=== PATIENT | female | born 1945 | race Caucasian/White ===

== ENCOUNTER 2021-05-28 11:56 | Outpatient (CLI) | payer MEDICARE, OTHER ==
--- NOTE | 2021-05-28 13:40 | XRAY Report ---
PROCEDURE: Ankle 3 View LT INDICATIONS: PAIN IN LEFT ANKLE TECHNIQUE: 3 views of the ankle were acquired. COMPARISON: None FINDINGS: Bones: Comminuted fracture is present within the distal fibula. Tibiotalar joint space is maintained. Ankle mortise is normally aligned. No suspicious bony lesions. Soft tissues: Lateral malleolar edema is present. Achilles tendon appears normal. IMPRESSION: Comminuted distal fibular fracture with adjacent soft tissue edema. Reviewed by: Dawn Dorsey MD on 05/28/2021 1:39 PM PDT Approved by: Dawn Dorsey MD on 05/28/2021 1:39 PM PDT Station ID: [id number]
== END 2021-05-28 23:59 | disposition home or self-care (01) ==
LOC: DI.S 11:56
PROVIDERS: ATTEND Emergency Medicine
DX: S82.832A Other fracture of upper and lower end of left fibula, initial encounter for closed fracture (principal)

== ENCOUNTER 2021-06-18 08:09 | Outpatient (CLI) | payer MEDICARE, OTHER ==
--- NOTE | 2021-06-18 14:36 | XRAY Report ---
PROCEDURE: Ankle 3 View LT INDICATIONS: DISPLACED FX OF LATERAL MALLEOLUS OF LET FIBULA TECHNIQUE: 3 weightbearing views of the ankle were acquired. COMPARISON: 05/28/2021 FINDINGS: Bones: Redemonstration of mildly displaced comminuted oblique fracture of the distal left fibula. Sug gestion of early bridging callus formation. Fracture line remains conspicuous. No abnormal widening o f the distal syndesmosis.. Ankle mortise is normally aligned. No suspicious bony lesions. Prominen t plantar calcaneal and retrocalcaneal enthesophytes. Mild degenerative changes of the dorsal left mi dfoot. Soft tissues: No tibiotalar joint effusion. Achilles tendon appears normal. IMPRESSION: 1. Healing mildly displaced comminuted oblique fracture of the distal left fibula with findings sugge stive of progress towards early fracture healing. 2. Prominent plantar calcaneal retrocalcaneal enthesophytes. 3. Mild dorsal midfoot osteoarthritic changes. Reviewed by: Ricardo Jefferson MD on 06/18/2021 2:35 PM PDT Approved by: Ricardo Jefferson MD on 06/18/2021 2:35 PM PDT Station ID: [id number]
== END 2021-06-18 23:59 | disposition home or self-care (01) ==
LOC: DI.N 08:09
PROVIDERS: ATTEND Physician Assistant
DX: S82.62XD Displaced fracture of lateral malleolus of left fibula, subsequent encounter for closed fracture with routine healing (principal); M77.32 Calcaneal spur, left foot; M19.012 Primary osteoarthritis, left shoulder

== ENCOUNTER 2021-07-21 13:45 | Outpatient (CLI) | payer MEDICARE, OTHER ==
--- NOTE | 2021-07-22 09:45 | XRAY Report ---
PROCEDURE: Ankle 3 View LT INDICATIONS: FRACTURE OF LATERAL MALLEOLUS OF LEFT FIBULA TECHNIQUE: 3 views of the ankle were acquired. COMPARISON: 06/18/2021, 05/28/2021 FINDINGS: Bones: There is a healing spiral fracture of the distal fibula extending to the tibial fibular synde smosis with increased callus formation. Fracture lines remain visible. A small avulsion fracture is a lso demonstrated inferiorly along the lateral malleolus. Ankle mortise is normally aligned. There is mild tibiotalar joint degeneration. There is preserved hindfoot alignment with weightbearing. There i s mild midfoot degeneration redemonstrated. There are small plantar and posterior calcaneal enthesoph ytes again noted. Visualized osseous structures appear mildly osteopenic which may be due to disuse. No suspicious bony lesions. Soft tissues: There is a decreased small tibiotalar joint effusion. Achilles tendon appears intact. IMPRESSION: 1. Healing mildly displaced spiral fracture of the distal fibula. 2. Healing small avulsion fracture of the inferior lateral malleolus. Reviewed by: Laz Adams MD on 07/22/2021 9:44 AM PDT Approved by: Laz Adams MD on 07/22/2021 9:44 AM PDT Station ID: [id number]
== END 2021-07-21 23:59 ==
LOC: DI.N 13:45
PROVIDERS: ATTEND Physician Assistant
DX: S82.832D Other fracture of upper and lower end of left fibula, subsequent encounter for closed fracture with routine healing (principal); S82.62XD Displaced fracture of lateral malleolus of left fibula, subsequent encounter for closed fracture with routine healing

== ENCOUNTER 2021-07-23 08:00 | Outpatient (CLI) | payer MEDICARE, OTHER ==
[2021-07-23 19:53] LABS: BASOPHILS % (AUTO) 0.5 %; EOSINOPHILS # (AUTO) 0.4 10^3/uL (0.0-0.7); EOSINOPHILS % (AUTO) 4.9 %; HCT - HEMATOCRIT 38.1 % (37.0-47.0); HGB - HEMOGLOBIN 12.3 g/dL (12.0-16.0); LYMPHOCYTES # (AUTO) 1.5 10^3/uL (1.5-3.5); LYMPHOCYTES % (AUTO) 19.4 %; MEAN CORPUSCULAR HEMOGLOBIN 30.8 pg (27.0-31.0); MEAN CORPUSCULAR HGB CONC 32.3 g/dL (32.0-36.0); MEAN CORPUSCULAR VOLUME 95.3 fL (81.0-99.0); MEAN PLATELET VOLUME 11.2 fL (7.9-10.8); MONOCYTES # (AUTO) 0.7 10^3/uL (0.0-1.0); MONOCYTES % (AUTO) 8.7 %; NEUTROPHILS # (AUTO) 5.2 10^3/uL (1.5-6.6); NEUTROPHILS % (AUTO) 66.1 %; PLT - PLATELET COUNT 260 10^3/uL (130-450); WHITE BLOOD COUNT 7.8 x10^3/uL (4.8-10.8)
[2021-07-23 20:18] LABS: CALCIUM 9.1 mg/dL (8.5-10.3); CREATININE 0.6 mg/dL (0.4-1.0); CRP - C-REACTIVE PROTEIN 3.1 mg/dL (0-1.0); POTASSIUM 3.9 mmol/L (3.5-5.0); URIC ACID 4.7 mg/dL (2.6-7.2)
== END 2021-07-23 23:59 | disposition home or self-care (01) ==
LOC: LAB.S 08:00
PROVIDERS: ATTEND Emergency Medicine
DX: M10.9 Gout, unspecified (principal)
CPT/HCPCS: 36415; 80048; 84550; 85025; 86140

== ENCOUNTER 2022-12-31 13:40 | Outpatient (CLI) | payer MEDICARE, OTHER ==
[2022-12-31 20:45] LABS: THYROID STIMULATING HORMONE 0.23 uIU/mL (0.34-5.60)
[2022-12-31 21:50] LABS: FREE T4 (FREE THYROXINE) 1.02 ng/dL (0.58-1.64)
== END 2022-12-31 13:41 | disposition home or self-care (01) ==
LOC: LAB.S 13:40
DX: E03.9 Hypothyroidism, unspecified (principal)
CPT/HCPCS: 36415; 84439; 84443